=== PATIENT | male | born 1965 | race Caucasian/White ===

== ENCOUNTER 2018-07-08 10:47 | Day surgery (SDC) | payer BC ==
--- NOTE | 2018-07-01 10:57 | EKG REPORT ---
SEVERITY:- NORMAL ECG - SINUS RHYTHM : Confirmed by: Jaime Jaquez 01-Jul-2018 10:56:45
--- NOTE | 2018-07-01 11:14 | RADIOLOGY REPORT (SQ) ---
EXAM DESCRIPTION: CHEST PA/LATERAL COMPLETED DATE/TIME: 07/01/2018 11:08 am REASON FOR STUDY: PRE-OP COMPARISON: None. EXAM PARAMETERS: NUMBER OF VIEWS: two views TECHNIQUE: Digital Frontal and Lateral radiographic views of the chest acquired. RADIATION DOSE: NA LIMITATIONS: none FINDINGS: LUNGS AND PLEURA: No opacities, masses or pneumothorax. No pleural effusion. MEDIASTINUM AND HILAR STRUCTURES: No masses or contour abnormalities. HEART AND VASCULAR STRUCTURES: Heart normal size. No evidence for failure. BONES: No acute findings. HARDWARE: None in the chest. OTHER: No other significant finding. IMPRESSION: NO SIGNIFICANT RADIOGRAPHIC FINDING IN THE CHEST. TECHNICAL DOCUMENTATION: JOB ID: [id number] [employer]- All Rights Reserved Reading location - IP/workstation name: [email or web address]
[2018-07-01 11:31] LABS: ANION GAP 11 (5-19); BLOOD UREA NITROGEN 15 mg/dL (7-20); CALCIUM 9.6 mg/dL (8.4-10.2); CARBON DIOXIDE 26 mmol/L (22-30); CHLORIDE 104 mmol/L (98-107); GLUCOSE 133 mg/dL (75-110); HEMATOCRIT 43.7 % (37.9-51.0); HEMOGLOBIN 14.9 g/dL (13.5-17.0); MEAN CORPUSCULAR HEMOGLOBIN 30.2 pg (27.0-33.4); MEAN CORPUSCULAR HGB CONC 34.1 g/dL (32.0-36.0); MEAN CORPUSCULAR VOLUME 89 fl (80-97); PLATELET COUNT 270 10^3/uL (150-450); POTASSIUM 4.9 mmol/L (3.6-5.0); RED BLOOD COUNT 4.92 10^6/uL (4.35-5.55); RED CELL DISTRIBUTION WIDTH 13.4 % (11.5-14.0); SODIUM 141.4 mmol/L (137-145); WHITE BLOOD COUNT 6.1 10^3/uL (4.0-10.5)
[~2018-07-08 10:47] MED LIST: ACETAMINOPHEN 1,000 MG/100 ML RTUPB IV PRN; ACETAMINOPHEN 325 MG TABLET PO PRN; BUPIVACAINE HCL 0.25 % INJ/PF (2.5 MG/1 ML) 30 ML VIAL ONE; DEXAMETHASONE SOD PHOSPHATE INJ 4 MG/1 ML VIAL ONE; FENTANYL CITRATE INJ/PF 250 MCG/5 ML AMPULE ONE; IBUPROFEN 800 MG in NORMAL SALINE 250 ML IV PRN; KETOROLAC TROMETHAMINE 60 MG/2 ML SDV ONE; LACTATED RINGERS 1000 ML IV PRN; LIDOCAINE 0.5% INJ-PF (5 MG/ML) 50 ML SDV SUBCUT PRN; MIDAZOLAM 2 MG/2 ML INJ ONE; ONDANSETRON HCL INJ/PF 4 MG/2 ML SDV ONE; PREGABALIN 50 MG CAPSULE PO PRN; PROPOFOL INJ 200 MG/20 ML VIAL IV ONE; ROCURONIUM BROMIDE INJ 50 MG/5 ML VIAL IV ONE; SUCCINYLCHOLINE CHLORIDE INJ 200 MG/10 ML VIAL ONE; SUGAMMADEX SODIUM 200 MG/2 ML SDV IV ONE; VANCOMYCIN HCL 1,000 MG in DEXTROSE 5%-WATER 250 ML IV PRN
[2018-07-08] MEDS ORDERED: ACETAMINOPHEN 325 MG TABLET ONE (11:04)
[2018-07-08] MEDS ORDERED: PREGABALIN 50 MG CAPSULE ONE (11:05)
[2018-07-08] MEDS ORDERED: FENTANYL CITRATE INJ/PF 100 MCG/2 ML AMPUL ONE (12:24)
[2018-07-08] MEDS ORDERED: DIPHENHYDRAMINE HCL 50 MG/ML VIAL IV PRN (13:20)
[2018-07-08] MEDS ORDERED: MEPERIDINE HCL/PF INJ 25 MG/1 ML DISP.SYRIN IV PRN (13:20)
[2018-07-08] MEDS ORDERED: FENTANYL CITRATE INJ/PF 100 MCG/2 ML AMPUL IV PRN ×3 (13:20)
[2018-07-08] MEDS ORDERED: ONDANSETRON HCL INJ/PF 4 MG/2 ML SDV IV PRN (13:20)
[2018-07-08] MEDS ORDERED: PROMETHAZINE HCL INJ 25 MG/1 ML VIAL IV PRN ×2 (13:20)
[2018-07-08] MEDS ORDERED: MORPHINE SULFATE 10 MG/ML INJ IV PRN (13:20)
[2018-07-08] MEDS: FENTANYL CITRATE INJ/PF 100 MCG/2 ML AMPUL ONE ×2 (15:22→15:30)
[2018-07-08] MEDS ORDERED: ONDANSETRON HCL INJ/PF 4 MG/2 ML SDV ONE (16:14)
[2018-07-08] MEDS ORDERED: HYDROCODONE/ACETAMINOPHEN 10-325 MG TABLET ONE (16:14)
[2018-07-08 18:38] VITALS: BP 109/55
--- NOTE | 2018-07-11 07:50 | Discharge Summary ---
Discharge Summary (SDC) - Discharge Final Diagnosis: Bilateral indirect inguinal hernias Date of Surgery: 07/08/18 Discharge Date: 07/08/18 Condition: Stable Forms: ASU Anesthesia D/C Instruction, Discharge POC-Surgical Service Treatment or Instructions: Discharge home. Diet as tolerated. Activity: No lifting greater than 10 pounds x 4 weeks. Follow-up with me in 7 to 10 days. Referrals: YUMIKO PALMA MD [ACTIVE STAFF] - (Call for appointment in 7-10 days.) SHIRLENE MARIE MD [Primary Care Provider] - Discharge Diet: As Tolerated Respiratory Treatments at Home: Deep Breathing/Coughing, Incentive Spirometer Discharge Activity: No Lifting Over 10 Pounds, No Lifting/Push/Pulling Home Care Assistance: Provided by Family Report the Following to Your Physician Immediately: Shortness of Breath, Increase in Pain, Fever over 101 Degrees, Unusual Bleeding, Redness, Swelling, Warmth, Increased Soreness, Drainage-Yellow, IV Site Infection Signs
--- NOTE | 2018-07-11 08:01 | Operative Report ---
Nonrecallable Operative Report DATE OF SURGERY: 07/08/18 PREOPERATIVE DIAGNOSIS: Bilateral symptomatic inguinal hernias POSTOPERATIVE DIAGNOSIS: Bilateral indirect inguinal hernias OPERATION: Robot-assisted laparoscopic bilateral inguinal hernia repair with mesh SURGEON: YUMIKO PALMA [employer]: MARCI JENKINS ANESTHESIA: GA TISSUE REMOVED OR ALTERED: None COMPLICATIONS: None apparent ESTIMATED BLOOD LOSS: Minimal PROCEDURE: Drains/implants: Large right and left 3 DMax inguinal hernia mesh. Procedure in detail: After informed consent was obtained, the patient was brought into the operating room and laid in the supine position. The area of the abdomen was prepped and draped in a normal sterile fashion. A supraumbilical incision was created with a 15 blade scalpel. Dissection was carried down to the fascia using sharp and blunt dissection. The linea alba fascia was incised sharply, the abdomen was entered sharply. The balloon trocar was inserted, and pneumoperitoneum was achieved. 2 right and left 8 mm robotic trochars were then placed under direct laparoscopic visualization. The robot was brought over the patient and docked appropriately. I then assumed my position at the surgeon's console. Attention was turned to the right groin. An incision in the peritoneum was created 3 cm superior to the hernia defect. A preperitoneal dissection was undertaken. An indirect inguinal hernia defect was identified. There was a large lipoma of the cord present. The hernia sac was dissected free of the cord structures, taking great care not to injure the cord structures. Once the dissection was completed and the hernia sac was freed, attention was turned to the left side. In similar fashion, a preperitoneal dissection was undertaken. There was also a large lipoma of the cord on the left, in the indirect position. The hernia sac was freed from the cord structures with great care. Once the dissection was completed, attention was turned to placement of the mesh. Right and left 3 DMax inguinal hernia mesh was inserted into the abdominal cavity. They were placed in the preperitoneal space. They were situated over the defects and sutured medially and superiorly with interrupted 2-0 vicryl suture. Once the mesh was situated over the defect and found to lie in good place, the peritoneum was closed using 2-0 V Lock Suture. The repairs were inspected. They were found to be in good order. Once this was confirmed, the robot was undocked. I then scrubbed back into the case. The trochars were removed. The supraumbilical fascia was closed using 0 Vicryl suture in [id number] fashion. The overlying skin was closed using 4-0 Vicryl Rapide suture in subcuticular fashion. Dressings were placed, and the procedure was concluded. All sponge, instrument, and needle counts were correct x2. Condition: Stable. Marci Jenkins PA-C was scrubbed and present the entirety of the procedure. She assisted with all portions of the procedure including placement of the trochars, docking of the robot, exchanging of the robotic instruments, insertion of the mesh, closure of the fascia, and closure of the skin.
== END 2018-07-08 17:20 | disposition home or self-care (01) ==
LOC: OROUT 10:47
PROVIDERS: ATTEND Surgery
DX: K40.20 Bilateral inguinal hernia, without obstruction or gangrene, not specified as recurrent (principal); E66.9 Obesity, unspecified; Z68.41 Body mass index [BMI] 40.0-44.9, adult; Z88.0 Allergy status to penicillin; Z87.891 Personal history of nicotine dependence
CPT/HCPCS: 49650; S2900; 36415; 71046; 80048; 840; 85027; 86850; 86900; 86901; 93005; 93010; C1781; J0330; J1100; J1741; J1885; J2250; J2405; J2704; J3010; J3370; J3490; J7050; J7060